=== PATIENT | female | born 1970 | race Caucasian/White ===

== ENCOUNTER 2016-11-11 12:31 | Observation (INO) | payer MEDICAID ==
[~2016-11-11] VITALS: Ht 165.1 cm; Wt 80.0 kg
[~2016-11-11 12:31] MED LIST: CELE20TA PO; LEVO75TA3 PO
[2016-11-11] MEDS ORDERED: ACETAMINOPHEN/HYDROcodone 325 MG/7.5 MG TAB PO PRN (15:15)
[2016-11-11] MEDS ORDERED: SODIUM CHLORIDE 0.9% FLUSH 5 ML FLUSH IVF PRN (15:15)
[2016-11-11] MEDS ORDERED: ALPRAZolam 0.25 MG TAB PO PRN (15:15)
[2016-11-11] MEDS ORDERED: ONDANSETRON HCL 4 MG/2 ML VIAL IV PRN (15:15)
[2016-11-11] MEDS ORDERED: ACETAMINOPHEN 500 MG CPLT PO PRN (15:15)
--- NOTE | 2016-11-11 15:32 | HHI.HP ---
HPI Primary Care Physician Unknown Chief Complaint Chest pain History of Present Illness This is a 45-year-old female that presented to [facility] to evaluate the chest discomfort that began this morning. She was subsequently transferred via [facility] to the chest pain center. She describes her discomfort as a "thumping sensation." States it is 1 thump and it goes away. Last a second. However it came back for 5 more times. Nothing in particular brings the sensation on. Denies shortness of breath, nausea, or diaphoresis. Denies recent illnesses. States she has been under some stress, she has recently from her boyfriend. She had a cardiac workup several years ago while in [place]. Had a heart monitor that revealed some skipped beats. Cannot recall ever having stress testing. Patient has history of hypothyroidism and has had her levothyroxine dose increased 2 times over the past 3 months. Denies family history of heart disease. Patient is a smoker. Denies recent travel. Denies sedentary lifestyle. Denies calf pain or swelling. Review of Systems General: Patient denies fevers, chills recent, and recent travel HEENT: Patient denies headache, sore throat, difficulty swallowing. Cardiovascular: Has the chest discomfort as mentioned above. Denies sensation of heart beating rapidly or irregularly. No syncope. Denies diaphoresis. Respiratory: Denies shortness of breath or inspirational chest discomfort. Denies coughing wheezing or hemoptysis. GI: Patient denies nausea, vomiting, diarrhea, abdominal pain, bloody stools. Musculoskeletal: Patient denies joint pain or edema. Denies calf pain or edema. Neurovascular: Patient denies numbness, tingling, weakness in extremities. Denies headache. Endocrine: Denies polyuria and polydipsia. Hematologic: Denies easy bruising. Skin: Denies rash or itching. Past Family Social History Allergies: Coded Allergies: iodine (Verified Allergy, Unknown, 11/11/16) Past Medical History Hypothyroidism and anxiety. History of tobacco abuse and continues to smoke about one half pack of cigarettes daily for 30 years. Denies hypertension, hyperlipidemia, diabetes, and CAD. Past Surgical History and 2 right shoulder surgeries. Reported Medications Reported Meds & Active Scripts Active Reported Celexa (Citalopram Hydrobromide) 20 Mg Tab 20 Mg PO DAILY Levothyroxine (Levothyroxine Sodium) 75 Mcg Tab 75 Mcg PO DAILY Active Ordered Medications Current Medications Medications (Trade) Dose Ordered Sig/Isaak Route Start Time Stop Time Status Last Admin (NS Flush) 2 ml UNSCH PRN IVF 11/11/16 15:15 (NS Flush) 2 ml BID IVF 11/11/16 21:00 (Tylenol) 500 mg Q4H PRN PO 11/11/16 15:15 (Spurger 7.5-325 Mg) 1 tab Q4H PRN PO 11/11/16 15:15 (Zofran Inj) 4 mg Q6H PRN IV 11/11/16 15:15 (Protonix) 40 mg DAILY PO 11/11/16 16:00 (Aspirin) 325 mg DAILY PO 11/12/16 09:00 (Xanax) 0.25 mg Q8H PRN PO 11/11/16 15:15 (CeleXA) 20 mg DAILY PO 11/12/16 09:00 (Synthroid) 75 mcg DAILY@0600 PO 11/12/16 06:00 Family History Denies family history of CAD. Social History Patient smokes one half pack of cigarettes daily for 30 years. Denies alcohol or illicit drugs. 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 Physical Exam Physical Exam GENERAL: This is a well-nourished, well-developed patient, in no apparent distress. Patient speaks in clear complete sentences. Patient is pleasant. HEENT: Head is atraumatic and normocephalic. Neck is supple without lymphadenopathy and trachea is midline. No JVD or carotid bruits. CARDIOVASCULAR: No tachycardia. Grade 2 systolic murmur left sternal border. Regular rate and rhythm without gallops, or rubs. RESPIRATORY: There is no tachypnea. Clear to auscultation. Breath sounds equal bilaterally. No wheezes, rales, or rhonchi. Chest wall is nontender. No use of accessory muscles. GASTROINTESTINAL: Abdomen is nontender, nondistended. Abdomen soft. No obvious pulsatile mass or bruit. No CVA tenderness. Strong femoral pulses bilaterally. Normal bowel sounds in all quadrants. MUSCULOSKELETAL: Patient is moving upper and lower extremities freely. No calf tenderness or edema, no Homans sign. Strong pulses in upper and lower extremities. NEUROLOGICAL: Patient is alert and oriented. Cranial nerves 2-12 are grossly intact. No focal deficits and speech is clear. SKIN: No rash and turgor is normal. Course Initial EKG is sinus rhythm without significant ST segment depressions or elevations. There are nonspecific T-wave changes inferiorly. Caprini VTE Risk Assessment Caprini VTE Risk Assessment: No/Low Risk (score <= 1) Caprini Risk Assessment Model Point Value = 1 Point Value = 2 Point Value = 3 Point Value = 5 Age 41-60 Minor surgery BMI > 25 kg/m2 Swollen legs Varicose veins or History of unexplained or recurrent spontaneous Oral contraceptives or hormone replacement Sepsis (< 1 month) Serious lung disease, including pneumonia (< 1 month) Abnormal pulmonary function Acute myocardial infarction Congestive heart failure (< 1 month) History of inflammatory bowel disease Medical patient at bed rest Age 61-74 Arthroscopic surgery Major open surgery (> 45 min) Laparoscopic surgery (> 45 min) Malignancy Confined to bed (> 72 hours) Immobilizing plaster cast Central venous access Age >= 75 History of VTE Family history of VTE Factor V Leiden Prothrombin [id number] Lupus anticoagulant Anticardiolipin antibodies Elevated serum homocysteine Heparin-induced thrombocytopenia Other congenital or acquired thrombophilia Stroke (< 1 month) Elective arthroplasty Hip, pelvis, or leg fracture Acute spinal cord injury (< 1 month) Prophylaxis Regimen Total Risk Factor Score Risk Level Prophylaxis Regimen 0-1 Low Early ambulation 2 Moderate Order ONE of the following: *Sequential Compression Device (SCD) *Heparin 5000 units SQ BID 3-4 Higher Order ONE of the following medications: *Heparin 5000 units SQ TID *Enoxaparin/Lovenox 40 mg SQ daily (WT < 150 kg, CrCl > 30 mL/min) *Enoxaparin/Lovenox 30 mg SQ daily (WT < 150 kg, CrCl > 10-29 mL/min) *Enoxaparin/Lovenox 30 mg SQ BID (WT < 150 kg, CrCl > 30 mL/min) AND/OR *Sequential Compression Device (SCD) 5 or more Highest Order ONE of the following medications: *Heparin 5000 units SQ TID (Preferred with Epidurals) *Enoxaparin/Lovenox 40 mg SQ daily (WT < 150 kg, CrCl > 30 mL/min) *Enoxaparin/Lovenox 30 mg SQ daily (WT < 150 kg, CrCl > 10-29 mL/min) *Enoxaparin/Lovenox 30 mg SQ BID (WT < 150 kg, CrCl > 30 mL/min) AND *Sequential Compression Device (SCD) Assessment and Plan Assessment and Plan * Atypical chest pain: Patient was transferred via [facility] from [facility] to evaluate her chest discomfort. Patient will continue to have serial cardiac enzymes and EKGs for ruling out purposes. She will be seen by Dr. Brar of cardiology in the chest pain center in the morning. Patient had mildly elevated d-dimer in [facility] at 0.61 however patient denies tachycardia, tachypnea, or shortness of breath. Likely not need further assessing but will discuss with Dr. Brar. * Hypothyroidism: We'll get TSH. * Anxiety: Continue current medication. * Tobacco abuse: Patient has been counseled on importance of smoking cessation. Patient is stable to time. She is agreeable to this plan. Christopher Mesa Nov 11, 2016 15:32
[2016-11-11 16:06] VITALS: BP 120/72; PULSE 60; RESP 16; TEMP 98.5; O2SAT 97
[2016-11-11 16:59] LABS: CREATINE KINASE 49 U/L (26-192)
[2016-11-11] MEDS: PANTOPRAZOLE SOD 40 MG DELAYED RELEASE TAB PO SCH (16:59)
[2016-11-11 20:14] VITALS: BP 118/78; PULSE 58; RESP 18; TEMP 98.3; O2SAT 98
[2016-11-11 20:20] VITALS: O2SAT 99
[2016-11-11] MEDS: SODIUM CHLORIDE 0.9% FLUSH 5 ML FLUSH IVF SCH (20:35)
[2016-11-12 00:44] VITALS: BP 129/65; PULSE 61; RESP 18; TEMP 98.4; O2SAT 99
[2016-11-12 04:23] VITALS: BP 120/80; PULSE 53; RESP 18; TEMP 98.4; O2SAT 100
[2016-11-12] MEDS ORDERED: LEVOTHYROXINE SODIUM 75 MCG TAB PO SCH (06:00)
[2016-11-12 07:11] VITALS: BP 104/64; PULSE 61; RESP 16; TEMP 98.7; O2SAT 99
[2016-11-12 07:22] VITALS: PULSE 68
[2016-11-12 07:35] VITALS: O2SAT 98
[2016-11-12] MEDS ORDERED: ASPIRIN 325 MG TAB PO SCH (09:00)
[2016-11-12] MEDS ORDERED: CITALOPRAM HYDROBROMIDE 20 MG TAB PO SCH (09:00)
[2016-11-12] MEDS: PANTOPRAZOLE SOD 40 MG DELAYED RELEASE TAB PO SCH (10:26)
[2016-11-12] MEDS: SODIUM CHLORIDE 0.9% FLUSH 5 ML FLUSH IVF SCH (10:26)
--- NOTE | 2016-11-12 11:49 | RADRPT ---
EXAM DATE/TIME: 11/12/2016 11:07 [facility] COMPARISON: CHEST SINGLE AP, November 11, 2016, 9:53. INDICATIONS : Chest pain. DOSE: 8.5 mCi Tc99m MAA IV 1.0 mCi Tc99m DTPA aerosol MEDICAL HISTORY : Smoker. SURGICAL HISTORY : section. Tubal ligation. ENCOUNTER: Initial ACUITY: 1 day PAIN SCALE: 4/10 LOCATION: chest TECHNIQUE: Following five minutes of tidal breathing of DTPA aerosol, planar images of the lungs were performed in eight projections. The patient was then injected with MAA, and eight-view perfusion scan was perf ormed. FINDINGS: There is a homogeneous pattern of aerosol delivery to the periphery of both lungs. No focal ventilat ory defects are seen. The perfusion lung scan demonstrates a homogenous pattern of uptake in both lungs. No segmental or s ubsegmental defects are seen. CONCLUSION: Low probability scan for pulmonary embolism Salvador Mccabe MD on November 12, 2016 at 11:46 Board Certified Radiologist. This report was verified electronically.
[2016-11-12 11:55] VITALS: BP 144/67; PULSE 60; RESP 16; TEMP 97.7; O2SAT 99
--- NOTE | 2016-11-12 13:42 | HHI.DCPOC ---
Discharge Care Plan Diagnosis: (1) Chest pain (2) Tobacco abuse (3) Hypothyroidism Goals to Promote Your Health * To prevent worsening of your condition and complications * To maintain your health at the optimal level Directions to Meet Your Goals Take your medications as prescribed Follow your dietary instruction Follow activity as directed Keep your appointments as scheduled Take your immunizations and boosters as scheduled If your symptoms worsen call your PCP, if no PCP go to Urgent Care Center or Emergency Room Smoking is Dangerous to Your Health. Avoid second hand smoke Call the 24-hour hour crisis hotline for domestic abuse at [facility]a Nov 12, 2016 13:41
--- NOTE | 2016-11-12 16:40 | TR ---
Date Performed: 11/12/2016 Time Performed: 13:20:39 DOCTOR: Clary Brar DRUG LIST: CLINICAL HISTORY: CHEST PAIN REASON FOR TEST: REASON FOR ENDING: OBSERVATION: CONCLUSION: GUIDO PROTOCOL. NO CP. TEST STOPPED AFTER EXCEEDING GOAL HR SECONDARY TO SOB AND LEG FATIGUE.Maximum IN=607 % Max HR Achieved=90.0% Maximum QL=056/80 Total Exercise Time=7:31 COMMENTS:
--- NOTE | 2016-11-12 16:44 | EKG ---
Date Performed: 11/11/2016 Time Performed: 15:51:45 PTAGE: 45 years EKG: SINUS BRADYCARDIA BORDERLINE ECG Since PREVIOUS TRACING , no significant change noted DOCTOR: Clary Brar Interpretating Date/Time 11/12/2016 16:43:49
== END 2016-11-12 15:01 | disposition home or self-care (01) ==
LOC: NEDDLT 14:50 → NEPHCDU 15:00
PROVIDERS: ADMIT Internal Medicine Cardiovascular Disease; ATTEND Internal Medicine Cardiovascular Disease
DX: R07.89 Other chest pain (principal); E03.9 Hypothyroidism, unspecified; F17.200 Nicotine dependence, unspecified, uncomplicated; F41.9 Anxiety disorder, unspecified; R79.89 Other specified abnormal findings of blood chemistry
CPT/HCPCS: 71010; 78582; 80053; 82550; 83735; 83880; 84443; 84484; 84702; 85025; 85379; 85610; 85730; 93005; 93017; 99285; A9540; A9567; G0378